=== PATIENT | female | born 1970 | race Caucasian/White ===

== ENCOUNTER 2018-01-21 11:39 | Emergency (ER) | payer MEDICAID, OTHER ==
[2018-01-21 11:44] VITALS: BMI 30.4
[2018-01-21 11:46] VITALS: BP 156/90; PULSE 65; RESP 18; TEMP 98.3; O2SAT 100
--- NOTE | 2018-01-21 12:52 | C.PDOC ---
History Of Present Illness Patient comes in complaining of a persistent foreign body sensation to the left thumb x 1 month. She rpeorts a piece of plastic lodged in her thumb and she did not remove it at that time. She reports pain to the area; denies any swelling, redness or discharge. She is able to move her thumb w/o difficulty. No other complaints. Time Seen by Provider: 01/21/18 12:22 Chief Complaint (Nursing): Finger,Hand,&Wrist History Per: Patient History/Exam Limitations: no limitations Onset/Duration Of Symptoms: Persistent Current Symptoms Are (Timing): Still Present Quality: "Pain" Additional History Per: Patient Past Medical History Reviewed: Historical Data, Nursing Documentation, Vital Signs Vital Signs: Last Vital Signs Temp 98.3 F 01/21/18 11:44 Pulse 65 01/21/18 11:44 Resp 18 01/21/18 11:44 BP 156/90 H 01/21/18 11:44 Pulse Ox 100 01/21/18 11:44 - Medical History PMH: Asthma Denies: HTN, Hypercholesterolemia, Chronic Kidney Disease Surgical History: Endoscopy Family History: States: No Known Family Hx - Social History Hx Tobacco Use: No Hx Alcohol Use: No Hx Substance Use: No - Immunization History Hx Tetanus Toxoid Vaccination: No Hx Influenza Vaccination: No Hx Pneumococcal Vaccination: No Review Of Systems Skin: Positive for: Other (foreign body sensation to left thumb) Physical Exam - Physical Exam Appears: Non-toxic, No Acute Distress Head: Normacephalic Eye(s): bilateral: Normal Inspection Neck: Supple Chest: Symmetrical Extremity: Normal ROM (FROM of all digits on left hand), Tenderness (localized tenderness to left thumb pad), Capillary Refill (< 2 seconds), No Deformity, No Swelling, Other (there is a subcutaneous nodular mass on left thumb pad; intact skin with no erythema or swelling. Normal neurovascular sensations.) Neurological/Psych: Oriented x3 ED Course And Treatment O2 Sat by Pulse Oximetry: 100 (RA) Pulse Ox Interpretation: Normal Medical Decision Making Medical Decision Making: Discussed with patient that due to concern for scarring and based on anatomic consideration, patient should have further evaluation by hand surgeon. Patient agrees with plan, and referral/follow up instructions given. Disposition Counseled Patient/Family Regarding: Diagnosis, Need For Followup - Disposition Referrals: Laura Ferguson MD [Staff Provider] - [facility] [Outside] Disposition: HOME/ ROUTINE Disposition Time: 12:51 Condition: IMPROVED Instructions: Foreign Body in Skin (DC) Forms: [employer] (N[place]ien) - Clinical Impression Clinical Impression: Foreign body of thumb - Scribe Statement The provider has reviewed the documentation as recorded by the Brett rGiffin Provider Attestation: All medical record entries made by the Brett were at my direction and personally dictated by me. I have reviewed the chart and agree that the record accurately reflects my personal performance of the history, physical exam, medical decision making, and the department course for this patient. I have also personally directed, reviewed, and agree with the discharge instructions and disposition.
== END 2018-01-21 13:01 | disposition home or self-care (01) ==
LOC: C.ER 11:39
DX: S60.352A Superficial foreign body of left thumb, initial encounter (principal); X58.XXXA Exposure to other specified factors, initial encounter